=== PATIENT | female | born 1955 | race Native Hawaiian/Other Pacific Islander ===

== ENCOUNTER 2019-05-11 07:03 | Inpatient (IN) ==
--- NOTE | 2019-05-11 07:27 | PROVIDER DOCUMENTATION ---
HPI-General Adult - General Chief Complaint: Post Op Complaint Stated Complaint: POST OP COMPLAINT Time Seen by Provider: 05/11/19 07:23 Source: patient, family, colliery clerk, old records Allergies/Adverse Reactions: Patient Allergies Allergy/AdvReac Type Severity Reaction Status Date / Time No Known Allergies Allergy Verified 05/05/19 10:32 Home Medications: Home Medication List Medication Instructions Recorded Confirmed Last Taken Type Metoprolol [Lopressor] 100 mg PO BID 05/17/15 05/11/19 05/08/19 21:00 History Omeprazole 40 mg PO DAILY 05/17/15 05/11/19 05/08/19 08:00 History Albuterol 0.5% INH Conc [Albuterol 2.5 mg INH Q4H PRN PRN 05/05/19 05/11/19 05/08/19 21:00 History 0.5% INH Conc For Hyperkalemia] Arformoterol Neb [Brovana Neb] 15 microgm INH BID 05/05/19 05/11/19 05/08/19 21:00 History Budesonide/Formoterol Inhaler 2 puff INH BID 05/05/19 05/11/19 05/08/19 21:00 History [Symbicort 160/4.5 Microgm Inhaler] Hydroxyzine [Atarax] 25 mg PO QHS 05/05/19 05/11/19 05/08/19 21:00 History Levothyroxine [Synthroid] 75 microgm PO DAILY 05/05/19 05/11/19 05/08/19 08:00 History Lidocaine 2% Jelly [Xylocaine 2% 0 ml TOP DIRECTED 05/05/19 05/11/19 Unknown History Jelly] Midodrine [Proamatine] 10 mg PO DIRECTED 05/05/19 05/11/19 Unknown History Sevelamer Carbonate 800 mg PO DIRECTED 05/05/19 05/11/19 Unknown History Tramadol [Ultram] 50 mg PO Q8HR PRN 05/05/19 05/11/19 05/08/19 21:00 History - History of Present Illness -Gen Adult Nature of Presenting Problems: pt w/ hx of polycystic CKI now ESRD on dialysis, oliguric, with hx of cystoscopy and bilat retrograde urethrorams ([facility]den: because of persistent or recurrent "bladder pain,") revealing 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 Urologist's op note not yet available for review / unclear whether other interventions performed. Review of Systems - Adult - REVIEW OF SYSTEMS - ADULT Constitutional: reports: no symptoms reported Eyes: reports: no symptoms reported Ears, Nose, Mouth & Throat: reports: no symptoms reported Cardiovascular: reports: no symptoms reported Respiratory: reports: no symptoms reported Gastrointestinal: reports: no symptoms reported Genitourinary: reports: no symptoms reported Musculoskeletal: reports: no symptoms reported Integumentary: reports: no symptoms reported Neurological: reports: no symptoms reported Psychiatric: reports: no symptoms reported Endocrine: reports: no symptoms reported Hematologic/Lymphatic: reports: no symptoms reported Allergic/Immunologic: reports: no symptoms reported All Other Systems: Reviewed and Negative Past History - Adult - PAST MEDICAL HISTORY-ADULT Review of Records: reports: Old Records Reviewed Major Childhood Illnesses: reports: denies history Cardiovascular: reports: HTN Respiratory: reports: denies history Gastrointestinal: reports: denies history Obstetrical/Gynecological: reports: denies history Genitourinary: reports: denies history Musculoskeletal: reports: denies history Neurological: reports: headaches/migraines Endocrine/Immune: reports: denies history Other Conditions: reports: denies history - PRIOR SURGERIES/PROCEDURES Surgical/Procedure History: reports: recent surgery, other (sinus surgery) - IMMUNIZATION STATUS Childhood Immunizations: See Nurse Assessment Flu Vaccine: See Nurse Assessment - FAMILY HISTORY Family History: reviewed, not pertinent Physical Exam-General - PHYSICAL EXAM-ADULT Initial Vital Signs Reviewed: Yes - CONSTITUTIONAL General Appearance: alert, moderate distress - EYES Eyes: PERRL/EOMI, pink conjunctivae - HEAD, EARS, NOSE, MOUTH & THROAT HENMT: normocephalic/atraumatic, moist mucous membranes - NECK Neck: supple - RESPIRATORY Respiratory: lungs clear - CARDIOVASCULAR Cardiovascular: regular rate, rhythm - GASTROINTESTINAL (ABDOMEN) Abdominal Exam: normal bowel sounds, tenderness. 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, grossly normal - PSYCHIATRIC Psych/Mental Status: normal mood/affect, normal thought content Progress - PLAN OF CARE/RESULTS Progress/Plan/Lab Results: Vital Signs - 8 hr 05/11/19 07:07 Temperature 98.3 F Pulse Rate 79 Respiratory Rate 18 Blood Pressure 173/74 O2 Sat by Pulse Oximetry 97 Orders Category Date Time Status CBC WITH DIFF [HEME] Stat Lab 05/11/19 07:26 Uncollected COMPREHENSIVE METABOLIC PANEL [CHEM] Stat Lab 05/11/19 07:26 Uncollected URINALYSIS W/POSS RFLX CULT [URINALYSIS] Stat Lab 05/11/19 07:26 Uncollected Result Diagrams: 05/11/19 07:30 05/11/19 07:30 - REASSESSMENT Reassessment #2 Time Reassessed: 12:05 Status: unchanged (CT confirms bladder in catheter, irrigation ongoing w/ blood- stained crystalloid return, little if any urine detectable. Discussed case w/ Dr. Baez (for [facility]) who rec'd admission w/ ongoing CBI, empiric abx, and he will see in consultation. Dr. Duffy (covering pt' PCP Dr. Castro) paged for admission.) - CONSULTS/PCP/HOSPITALIST Notification #1 *Consult/PCP/Hospitalist*: Clive Departure - Departure Date of Disposition Decision: 05/11/19 Time of Disposition Decision: 13:08 DIAGNOSIS: Gross hematuria, Abdominal pain Disposition: ADMITTED INPATIENT 09 Certified Medical Emergency: Emergent Condition: Stable - Critical Care Note This patient required my direct & personal management of CC.: No Attestation - Physician/ MIRLANDE Attestation The physician spent face to face time with patient:: Yes Advanced Practice Provider documentation review:: Supervising physician onsite and consulted in the evaluation and care of this patient. The physician did have a face to face encounter with the patient.
[2019-05-11] MEDS ORDERED: ZOFRAN IV ONE ×2 (08:08→11:25)
[2019-05-11] MEDS ORDERED: DILAUDID IV ONE ×3 (08:08→13:50)
[2019-05-11 08:09] LABS: BASO# 0.06 X1000 (0.0-0.2); BASO% 0.8 % (0.0-0.8); EOS# 0.83 X1000 (0.0-0.7); EOS% 11.6 % (0.0-10.0); HEMATOCRIT 30.8 % (37.0-47.0); HEMOGLOBIN 9.7 g/dL (12.0-16.0); IMM GRAN# 0.03 X1000 (0.0-0.04); IMM GRAN% 0.4 % (0.0-0.5); LYMPH# 1.33 X1000 (1.2-3.4); LYMPH% 18.7 % (20.5-51.1); MCH 31.2 PG (27-31); MCHC 31.5 g/dL (33-37); MONO% 12.6 % (1.7-9.3); MPV 11.2 FL (7.4-10.4); NEUT# 3.98 X1000 (1.4-6.5); NEUT% 55.9 % (42.2-75.2); PLT 148 X1000 (130-400); RBC 3.11 XMIL (4.2-5.4); RDW 13.9 % (11.5-14.5); WBC 7.13 X1000 (4.8-10.8)
[2019-05-11 08:42] LABS: AGAP 7; ALB/GLOB RATIO 1.1; ALBUMIN 3.6 g/dL (3.5-5.0); ALKALINE PHOSPHATASE 95 U/L (32-104); BUN 13 mg/dL (8-22); CALCIUM 9.1 mg/dL (8.8-10.2); CHLORIDE 95 mmol/L (98-107); COSMO 270; CREATININE 3.5 mg/dL (0.5-0.9); ESTIMATED GFR 13; GLUCOSE 132 mg/dL (70-104); GOT 14 U/L (10-30); GPT < 5 U/L (10-36); POTASSIUM 3.6 mmol/L (3.5-5.1); SODIUM 134 mmol/L (136-145); TCO2 32 mmol/L (25-35); TOTAL BILIRUBIN 0.36 mg/dL (0.20-1.00); TOTAL PROTEIN 6.8 g/dL (6.3-8.3)
--- NOTE | 2019-05-11 11:14 | Diag Imaging Result Doc PS360 ---
CT ABDOMEN/PELVIS W/O CONTRAST - 05/11/2019 INDICATION: hematuria, abd pain s/p RCUG COMPARISON: There is cardiomegaly. The lung bases are clear. There is moderate ascites. There is a small ventral hernia containing some ascites at the anterior pelvic body wall. There is a Vizcarra catheter in good position in the urinary bladder. The urinary bladder does contain some density consistent with previous administered contrast. There is also some urinary bladder wall thickening and mild irregularity, either chronic or related to cystitis. Uterus and rectum are normal. No free air. No bowel obstruction or inflammation. The kidneys are very atrophic. There is moderate to severe bilateral hydroureteronephrosis. There are cholecystectomy clips. The liver and spleen are normal. The pancreas is very atrophic. FINDINGS: 1. Moderate ascites. 2. Moderate to severe bilateral hydroureteronephrosis. Somewhat distended urinary bladder in spite of a Vizcarra catheter. There is urinary bladder wall thickening, nonspecific. 3. Significant cardiomegaly. IMPRESSION: Negative exam. This exam was performed using automated exposure control, adjustment of mA or kV according to patient size, and/or use of iterative reconstruction technique Electronically signed by Ace White 05/11/2019 11:11 AM
[2019-05-11 12:01] LABS: URINE SOURCE CLEAN CATCH
[2019-05-11] MEDS ORDERED: ROCEPHIN 1 GM in NS 50 ML IV ONE (12:09)
[2019-05-11 12:31] LABS: URINE RBC TNTC /HPF (<10)
[2019-05-11 12:32] LABS: COLOR RED; GLUCOSE URINE 100 mg/dL (NEGATIVE); TURBIDITY URINE TURBID (CLEAR)
[2019-05-11 12:33] LABS: BILIRUBIN URINE SMALL (NEGATIVE); BLOOD URINE LARGE (NEGATIVE); KETONE URINE TRACE mg/dL (NEGATIVE); LEUKOCYTES URINE TRACE (NEGATIVE); NITRITE URINE POSITIVE (NEGATIVE); PROTEIN URINE 300 mg/dL (NEGATIVE); SP GRAVITY URINE 1.015; UROBILINOGEN URINE NORMAL (NORMAL)
[2019-05-11] MEDS ORDERED: MORPHINE IV PRN (15:00)
[2019-05-11] MEDS ORDERED: DUONEB (A & A) INH ONE (16:43)
[2019-05-11] MEDS ORDERED: TYLENOL PO PRN (16:53)
[2019-05-11] MEDS ORDERED: ULTRAM PO PRN (16:54)
[2019-05-11] MEDS ORDERED: PROAMATINE PO SCH (17:00)
--- NOTE | 2019-05-11 17:22 | HISTORY AND PHYSICAL ---
CHIEF COMPLAINT: Abdominal pain and hematuria. HISTORY OF PRESENT ILLNESS: The patient is a 63-year-old, female who had gross hematuria and had a cystoscopy 2 days ago apparently as an outpatient or was admitted just overnight. They have kind of cleared the bleeding but has continued to have clots per urethra and abdominal discomfort and came back to the hospital today. She had talked with Dr. Castro or at least her family did earlier today. He called me and thought she needed to be admitted to the hospital and to have Urology take a look at her again. Dr. Baez is covering for Dr. Oden and he will be taking her for another cystoscopy. MEDICATIONS: Lopressor 100 mg p.o. b.i.d., omeprazole 40 mg p.o. b.i.d. Brovana nebulizer 15 mcg inhalations twice daily. Symbicort 160/4.5, 2 puffs b.i.d., but has not had any today. Atarax 25 mg at bedtime. Levothyroxine or Synthroid 75 mcg daily. Xylocaine jelly topically as directed. Midodrine 10 mg p.o. as directed. Sevelamer carbonate 800 mg p.o. as directed and tramadol 50 mg p.o. q.8 hours p.r.n. pain. PAST MEDICAL HISTORY: The patient has history of polycystic kidneys with end-stage renal disease and on dialysis apparently with Dr. Gonsalves. She has had a history of abdominal wall hernia. 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 She has some hydronephrosis. The patient has had hypertension and apparently has had asthma. SOCIAL HISTORY: She does not use alcohol or tobacco. REVIEW OF SYSTEMS: Difficult to obtain, the patient does not speak any Vietnamese. Her was in the room and he speaks a little Vietnamese. Review of systems though through the emergency room physician and what I could get from .Neurological: Denies headaches, seizures, visual problems, hearing problems. Pulmonary: She has had some wheezing and takes medication for that. Cardiovascular: Denies chest pain, heart palpitations, PND, orthopnea. Gastrointestinal: Denies hematochezia, hematemesis, melena, constipation. Does have ascites supposedly from nephrotic syndrome. Endocrine: Denies diabetes or pituitary problems. But does have hypothyroidism and takes thyroid replacement hormone. PAST SURGICAL HISTORY: The patient has had a history of sinus surgery. PHYSICAL EXAMINATION: VITAL SIGNS: Blood pressure is 156/54, respirations 19, pulse 62 and regular, temperature is 98.4 degrees Fahrenheit. Oxygen saturation on 2 L is 100%. HEENT: She is normocephalic. EOMS intact. PERRLA. Throat clear. NECK: Supple without thyromegaly, lymphadenopathy, carotid bruits. LUNGS: Have some scattered wheezing. HEART: Regular rate and rhythm without murmurs, gallops, friction rubs. ABDOMEN: Soft. Active bowel sounds. Mild tenderness in the lower quadrants. She does have some ascites and a hernia. PELVIC, RECTAL AND BREAST: Examinations are deferred. INTEGUMENT: Shows no lesions consistent with melanoma or other skin cancers. LYMPHATIC: Lymph nodes are nonpalpable in the cervical and supraclavicular areas. NEUROLOGICAL: Cranial nerves 2-12 intact. Sensory and motor intact. LABORATORY: Shows white count 7130. Hemoglobin 9.7, probably from chronic renal disease. Hematocrit 30.8. Potassium is 3.6, sodium 134, creatinine is 3.5, BUN 13. Urinalysis shows too numerous to count red blood cells. ASSESSMENT: 1. Hematuria. 2. End-stage renal disease. 3. Polycystic kidneys. 4. Asthma. 5. Hypertension. PLAN: We will admit. I have consulted Urology who is going to take her for cystoscopy. We will treat her bronchospasm. cc: Mauro Duffy Jr, MD
--- NOTE | 2019-05-11 17:27 | CONSULTATION ---
DATE OF CONSULTATION: 05/11/2019 CHIEF COMPLAINT: Hematuria with clots. HISTORY OF PRESENT ILLNESS: Mrs. Glass is a 63-year-old with end-stage renal disease, hypertension, and hypothyroidism who was seen by Dr. Oden regarding hematuria and bladder pain. The patient was taken to the operating room on Thursday for cystoscopy and bilateral retrograde pyelograms. The patient had a normal cystoscopy with no masses seen. Retrograde pyelogram showed a small amount of retained contrast bilaterally with distended collecting systems. The patient did well and then was discharged home; however she has had persistent hematuria since undergoing dialysis yesterday. The patient was brought to the [facility] Emergency Room today for further evaluation. She is complaining of bladder pain and pressure. The patient had a catheter inserted in the ED and subsequently started on bladder irrigation. The irrigation was drained well while in the emergency room; however, on the floor, her catheter was unable to drain, and it seems like there is a large amount of clot within her bladder. She has been complained of pain, and her abdomen is distended per her 's report. No palpable masses were seen previously, per the . He states that she had to have a paracentesis in the past for ascites. He also describes having a "bladder repair" by Dr. Alexandre several years ago. The patient is uncomfortable in the room and her husbands states this is how she felt prior to that surgery. . PAST MEDICAL HISTORY: 1. End-stage renal disease. 2. Hypertension. 3. Hypothyroidism. 4. Gastroesophageal reflux disease. PAST SURGICAL HISTORY: 1. Bladder repair by Dr. Alexandre. 2. Sinus surgery. 3. Cystoscopy and bilateral retrograde pyelograms by Dr. Alexandre. 4. Left AV fistula ALLERGIES: No known drug allergies. HOME MEDICATIONS: 1. Metoprolol 100 mg b.i.d. 2. Omeprazole 40 mg daily. 3. Albuterol 2.5 mg every 4 hours as needed. 4. Brovana nebulizer. 5. Symbicort 160/4.5. 6. Hydroxyzine 25 mg p.o. 7. Synthroid 75 mcg p.o. daily. 8. Midrin 10 mg p.o. 9. Sevelamer 800 mg p.o. 10. Tramadol 50 mg p.o. every 8 hours as needed for pain. FAMILY HISTORY: Denies family history of malignancies. REVIEW OF SYSTEMS: A 12-point review of systems was performed, with all pertinent positives negative unless noted in the HPI. PHYSICAL EXAMINATION: Vital signs: Temperature 98.4, heart rate 62, blood pressure 156/54, oxygenation 100% on nasal cannula. General: Mild distress, complaining of abdominal pain in [place]. Respiratory: Good respiratory effort without audible wheezing or rales. HEENT: Normocephalic, atraumatic. Pupils equal, round, and reactive to light. Neck: Trachea midline with no palpable masses. Cardiovascular: Regular rate and rhythm. Abdomen: Abdominal distention with palpable firm suprapubic area and what appears to be an infraumbilical abdominal hernia. Slight tenderness to palpation of the suprapubic area. : Urethral catheter in place, not draining any irrigant. CBI is off. No CVA tenderness. Musculoskeletal: Moving all extremities. Left AVF fistula in place. Skin: No skin lesions or rashes. LABS: White blood cell count 7.1, hemoglobin 9.7, hematocrit 30.8, platelets 148. Sodium 134, potassium 3.6, chloride 95, bicarb 32, BUN 13, creatinine 3.5, glucose 132, AST and ALT 14 and less than 5. Urine shows 300 protein, 100 glucose, large amount of blood, nitrite positive, trace leukocytes, negative bacteria and epithelial cells. IMAGING STUDIES: CT images reviewed, which showed a slightly distended bladder with a homogeneous appearance with no obvious clots and likely contrast in the bladder itself with spherical shape. The collecting systems are slightly distended. The catheter is in place. A large amount of ascites is present with what appears to be a infraumbilical hernia that is fluid collecting. ASSESSMENT AND PLAN: Mrs. Glass is a 63-year-old with hypertension, end-stage renal disease on dialysis, gastroesophageal reflux disease, and hypothyroidism, who presents in consultation regarding gross hematuria with clot passage. The patient had undergone surgery by Dr. Oden on Thursday for hematuria and was discharged home. The patient had dialysis yesterday and developed significant hematuria. Her states that she did not get any heparin for the past 2 dialysis sessions related to potential risk of hematuria following her dialysis. The patient is having some suprapubic pain and distention. The patient was evaluated, and her abdomen was quite swollen. I tried to irrigate her catheter, which did not irrigate effectively. The decision was made to remove the 22- [place] [address] catheter latex and exchange it for a 24 three-way catheter silicone. I was able to irrigate a large amount of clots from the bladder, which significantly improved her abdominal exam. The patient had no significant distention or tenderness to palpation at the end of the procedure; however, her urine continues to be quite bloody while on continuous irrigation. Irrigation does drained effectively, and I cannot get anymore clots out. I am highly concerned with her history of prior bladder repair by Dr. Alexandre that she may have aggravated this again with her distended bladder and persistent hematuria. I talked with the family. I recommended cystoscopy with clot evacuation and fulguration of bleeding, to ensure she does not have an intraperitoneal bladder rupture. The patient had a CT scan today which showed a small amount of hyperdense material in the bladder itself, likely contrast from her procedure versus clots. I did remove a large amount of clot from her bladder today with hand irrigation, and she seems to be much more comfortable. I still remain concerned regarding her history of bladder injury and that she may have a subacute bladder injury. I recommended cystoscopy and clot evacuation under anesthesia. If there is a hole, I told the family that I would try to repair that at that time. The patient and her are in agreement. Also discussed with her son, who agrees with the plan of care. We will plan to take her to the operating room later tonight for the procedure. Can restart diet after her procedure. cc: MD Mauro Claudio Jr, MD MTDD
[2019-05-11] MEDS: ZOFRAN IV PRN (17:28)
[2019-05-11] MEDS: DILAUDID IV PRN (17:28)
[2019-05-11] MEDS ORDERED: DIPRIVAN 1% ONE (18:16)
[2019-05-11] MEDS ORDERED: ZEMURON ONE (18:18)
[2019-05-11] MEDS ORDERED: QUELICIN (DOSE) ONE ×2 (18:18→18:20)
[2019-05-11] MEDS ORDERED: ZOFRAN ONE (18:20)
[2019-05-11] MEDS ORDERED: DECADRON ONE (18:20)
[2019-05-11] MEDS ORDERED: FENTANYL ONE (18:21)
[2019-05-11] MEDS: SYMBICORT 160/4.5 MICROGM INHALER INH SCH (19:34)
[2019-05-11] MEDS ORDERED: MORPHINE ONE (20:34)
[2019-05-11 20:51] LABS: HEMATOCRIT 32.6 % (37.0-47.0); HEMOGLOBIN 10.2 g/dL (12.0-16.0); MCH 31.2 PG (27-31); MCHC 31.3 g/dL (33-37); MCV 99.7 FL (81-99); MPV 10.9 FL (7.4-10.4); RBC 3.27 XMIL (4.2-5.4); WBC 13.28 X1000 (4.8-10.8)
--- NOTE | 2019-05-11 21:43 | Diag Imaging Result Doc PS360 ---
CYSTOGRAM 123 FILMS W S/I - 05/11/2019 INDICATION: GROSS HEMATURIA,POST BLADDER SURGERY TECHNIQUE: The exam was performed by the patient's urologist. Three images were obtained. COMPARISON: CT from earlier today FINDINGS: The urinary bladder was scoped and filled with contrast. The exam appears grossly normal. IMPRESSION: No acute disease. Electronically signed by Ace White 05/11/2019 9:40 PM
[2019-05-12] MEDS: PRILOSEC PO SCH ×2 (05:44→06:28)
[2019-05-12] MEDS: SYNTHROID PO SCH ×2 (05:45→06:28)
[2019-05-12 07:01] LABS: BASO# 0.04 X1000 (0.0-0.2); BASO% 0.4 % (0.0-0.8); EOS# 0.72 X1000 (0.0-0.7); EOS% 7.8 % (0.0-10.0); HEMATOCRIT 26.6 % (37.0-47.0); HEMOGLOBIN 8.1 g/dL (12.0-16.0); IMM GRAN# 0.03 X1000 (0.0-0.04); IMM GRAN% 0.3 % (0.0-0.5); LYMPH% 14.1 % (20.5-51.1); MCH 30.7 PG (27-31); MCHC 30.5 g/dL (33-37); MCV 100.8 FL (81-99); MONO# 1.31 X1000 (0.11-0.59); MONO% 14.2 % (1.7-9.3); MPV 10.9 FL (7.4-10.4); NEUT# 5.81 X1000 (1.4-6.5); NEUT% 63.2 % (42.2-75.2); PLT 148 X1000 (130-400); RBC 2.64 XMIL (4.2-5.4); RDW 14.1 % (11.5-14.5); WBC 9.21 X1000 (4.8-10.8)
[2019-05-12 07:15] LABS: CALCIUM 8.1 mg/dL (8.8-10.2); CREATININE 4.6 mg/dL (0.5-0.9); POTASSIUM 4.1 mmol/L (3.5-5.1)
--- NOTE | 2019-05-12 07:27 | OPERATIVE NOTE ---
PROCEDURE DATE: 05/11/2019 PREOPERATIVE DIAGNOSIS: Hematuria. POSTOPERATIVE DIAGNOSIS: Hematuria. PROCEDURE PERFORMED: 1. Cystoscopy with clot evacuation and fulguration of bleeding. 2. Cystogram SURGEON: Antonio Baez MD. HUMAN RESOURCES CLERK: None. COMPLICATIONS: None. ESTIMATED BLOOD LOSS: 30 mL. SPECIMEN REMOVED: Clots. ANESTHESIA: Endotracheal intubation. INDICATIONS FOR PROCEDURE: Mrs. Glass is a 63-year-old with end-stage renal disease, who has been having intermittent hematuria. The patient was seen by Dr. Oden and underwent cystoscopy with bilateral retrograde pyelograms on Thursday. The patient developed hematuria after having dialysis on Thursday, and presented to the emergency room Thursday afternoon with hematuria. The patient was evaluated and admitted to the hospitalist, who was consulted due to not draining from her catheter. She was evaluated and found to have a large clot burden within her bladder. I was able to evacuate some clots through the catheter, however patient continued to have discomfort and hematuria. The patient has a history of prior bladder perforation, which was repaired by Dr. Alexandre several years ago. Due to these findings, I recommended cystoscopy, clot evacuation, cystogram and evaluation for bladder perforation. Risks, benefits, alternatives to procedure were discussed the patient and her , who elected to proceed. DESCRIPTION OF PROCEDURE: After informed consent was obtained, the patient brought to the operating room, placed on the operating table in supine position. The patient received preoperative antibiotics and underwent endotracheal intubation. She was positioned in a dorsal lithotomy position, was prepped and draped in usual fashion. A preoperative time-out was performed with all parties in agreement, including anesthesia, surgical, nursing staff. At which point I inserted a 21-[place] cystourethroscope into the bladder. Once in the bladder, a large amount of clot was seen. I tried to evacuate the clot through our cystoscope, but had significant difficulty due to the patient having a very small bladder, which did not allow for adequate distention. Ultimately obtained a resectoscope 25-[place] and advanced to the bladder, and then tried to use an Ellik, as well as a Vinay syringe, which did not allow for adequate removal of clot. The decision was made to use a loop and extract clot. I was able to extract a large amount of clot this way. Ultimately, after approximately half the clot was removed, I shot a cystogram after reinserting the cystoscope, which outlined a normal bladder with some filling defects from the clots, but no obvious extravasation in the bladder itself, at which point I continued to remove clots and spent approximately an hour removing clots in total. Once all this was removed, I shot another cystogram which outlined a normal bladder with no evidence of any extraperitoneal or intraperitoneal drainage, and the bladder drained efficiently on postdrainage film. The patient's bladder was quite small, likely from her end-stage renal disease. Ultimately I saw several small petechial areas that were bleeding and these were cauterized, and the patient's bladder was cycled multiple times with no active bleeding seen. Once this was completed, the patient's bladder was left full, and a 22-[place] 3-way catheter was inserted and inflated with 20 mL of sterile water, placed to gravity drainage and continued. His bladder irrigation was initiated. The patient was transferred back to the floor. We will obtain a CBC in PACU and evaluate overnight on continuous irrigation. We will wean this as tolerates. cc: MD Mauro Claudio Jr, MD MTDD
[2019-05-12] MEDS: SYMBICORT 160/4.5 MICROGM INHALER INH SCH ×2 (07:35→19:23)
[2019-05-12] MEDS: DUONEB (A & A) INH PRN ×2 (07:36→15:42)
[2019-05-12] MEDS ORDERED: LOPRESSOR PO SCH ×2 (09:00→21:00)
[2019-05-12] MEDS: ZOFRAN IV PRN ×3 (09:02→19:48)
[2019-05-12] MEDS ORDERED: NS 500 ML IV ONE (09:52)
--- NOTE | 2019-05-12 10:39 | PROGRESS NOTE ---
DATE: 05/12/2019 SUBJECTIVE: Ms. Glass is still having some abdominal pain. She is getting bladder irrigation and returning fluid is still blood stain tinge; however, it is much better. She had a cystoscopy done last night. OBJECTIVE: Her vital signs are stable. Hemoglobin has dropped from 10.2 to 8.1 on account of persistent hematuria. Her electrolytes status is normal. ASSESSMENT AND PLAN: She has renal failure. She has her dialysis in [place]. However, she is due for tomorrow. I am going to ask for Dr. Conde's consult for possible dialysis tomorrow. She also has significant ascites, and we will try to find out if we can get consultation for abdominal paracentesis. We will transfuse 1 unit of packed red blood cells today. cc: MD Mauro Oliva Jr, MD
--- NOTE | 2019-05-12 11:24 | PROGRESS NOTE ---
DATE: 05/12/2019 SUBJECTIVE: The patient did well overnight. Patient went to the operating room yesterday for cystoscopy, clot evacuation, fulguration of bleeding. The patient's catheter has been draining well with a slow drip of continuous bladder irrigation. There was a light pink color to it today with no obvious clots seen within the catheter or the catheter bag. The patient's vital signs have been stable. She denies significant pain this morning. She remains afebrile. OBJECTIVE: Vital Signs: Temperature 98.4 degrees, heart rate 76, blood pressure 123/48, oxygen saturation 91% on room air. General: No acute distress. Resting comfortably in bed. Respiratory: Good respiratory effort without audible wheezing or rales. Abdomen: Soft, nontender, nondistended. Genitourinary: No suprapubic tenderness. No CVA tenderness. Urethral catheter in place with continuous bladder irrigation and a slow drip with no significant clots. Irrigation is light pink on a very slow drip. LABS: White blood cell count 9.2, hemoglobin 8.1, hematocrit 26.6, platelets 148,000. Sodium 134, potassium 4.1, chloride 96, bicarbonate 27, BUN 20, creatinine 4.6, glucose 105, calcium 8.1. ASSESSMENT AND PLAN: Mrs. Glass is a 63-year-old with end-stage renal disease with a history of hematuria who underwent cystoscopy, bilateral retrograde pyelograms on 05/09/[address] Oden. The patient developed postoperative bleeding and went to the operating room yesterday for cystoscopy and clot evacuation. The patient was kept on continuous irrigation, and her drainage is slow with a very light pink color. I would likely plan to wean the irrigation off later today, and if urine remains clear I would plan to remove the catheter in the morning for a voiding trial. No obvious etiology for hematuria was seen yesterday. I think she may have some hematuria from kidneys leading to her hematuria. If this persists, may have to evaluate for management of upper tract bleeding. The patient will follow up with Dr. Oden after discharge. cc: MD Mauro Claudio Jr, MD MTDD
[2019-05-12] MEDS: DILAUDID IV PRN (12:08)
[2019-05-12] MEDS: RENAGEL PO SCH (12:15)
--- NOTE | 2019-05-12 14:03 | NEPHROLOGY CONSULTATION ---
DATE: 05/12/2019 REASON FOR CONSULTATION: Renal failure. Patient needs hemodialysis in a.m. HISTORY OF PRESENT ILLNESS: Ms. Glass is a 63-year-old chronic dialysis patient who had a procedure done by Dr. Oden. He subsequently developed hematuria and abdominal pain. Ultimately, she was admitted and taken to the operating room for evacuation of clot and fulguration of bleeding sites. She currently is without pain and has a Mcguire drip for bladder irrigation. Lying flat. No shortness of breath. No nausea, vomiting, etc. PHYSICAL EXAMINATION: Vital Signs: Blood pressure 131/46, heart rate 67, respirations 16, afebrile. General: No acute distress. Skin: Warm and dry. Conjunctivae are pink. Neck: Neck veins are not appreciated. Heart: Regular. No rubs. Lungs: Equal. No crackles or wheezes. Abdomen: Soft, distended, mildly tender. Bowel sounds are present. Extremities: No edema, clubbing or cyanosis. Left upper arm AV fistula. IMPRESSION: Chronic kidney disease 5D. She will have her routine hemodialysis treatment tomorrow. Volume status, electrolytes, acid-base are all in target. Hemoglobin is 8.1. She is receiving a unit of packed red blood cells. cc: MD Mauro Seals Jr, MD
--- NOTE | 2019-05-12 15:13 | GASTROENTEROLOGY CONSULTATION ---
DATE: 05/12/2019 PRIMARY CARE PHYSICIAN: Dr. Castro REASON FOR CONSULTATION: Ascites. HISTORY OF PRESENT ILLNESS: Ms. Glass is a 63 female who was admitted on 05/11/2019 for abdominal pain and hematuria. She has been seen by Dr. Baez and had cystoscopy with clot evacuation and fulguration of bleeding. The patient has history of end-stage renal disease, on hemodialysis Thursday, Thursday, Thursday for the last 5 years. She has been noticing increasing ascites over the last a few months. She has had ascites drained a couple of times, the last one was 3 months ago at [facility]. During this admission she was noted to have abdominal distention and imaging showed evidence off of a moderate amount of ascites. There is no history of any liver disease. The patient denies history of alcohol. She denies any history of heart disease. The pathology and etiology of ascites is unclear, could be related to renal failure. Gastroenterology consulted for paracentesis. PAST MEDICAL HISTORY: 1. End-stage renal disease secondary to polycystic kidneys. 2. End-stage renal disease on hemodialysis Thursday, Thursday, Thursday. 3. Abdominal wall hernia. 4. Ascites. 5. Hydronephrosis. 6. Hypertension. 7. Asthma. 8. Reflux disease. 9. Hypothyroidism. SOCIAL HISTORY: No history of alcohol, tobacco, illicit drugs. She is . Her is very supportive, present at the bedside. PAST SURGICAL HISTORY: Sinus surgery, and paracentesis. Cystoscopy which was done during this admission. ALLERGIES: No known drug allergies. MEDICATIONS IN HOSPITAL: Include Dilaudid 0.5 mg IV every 3 hours as needed. Tylenol, albuterol/ipratropium, budesonide/formoterol, Synthroid, metoprolol, midodrine, omeprazole, Zofran, Renagel, tramadol. She is currently on NPO and Nepro shakes. REVIEW OF SYSTEMS: Denies any fevers, rigors, chills and chest pain, shortness of breath, dyspnea. Denies any vomiting blood. She did have nausea and decreased p.o. intake and she has not moved her bowels since admission. She denies any major arthritis denies any neurologic complaints. She has renal failure secondary to polycystic kidney disease on hemodialysis Thursday, Thursday, Steve. Next dialysis tomorrow. PHYSICAL EXAMINATION: Vital signs: Temperature 98 degrees, pulse rate 67, respiratory 16, blood pressure 130/46 saturating 91% on room air. Body weight of 92 pounds. BMI 18.6 kg. General: Thinly built, lying in bed, in no acute distress.HEENT: Positive pallor. No icterus. Pupils equal, reactive to light. Nasal cannula in place. Neck: Supple. Neck is supple. Abdomen: Abdomen is distended. Ascites positive. Discomfort in the pelvic region. No rebound. No guarding. Extremities: No cyanosis clubbing. Neuro: She is alert, awake, oriented x3. LABS: Hemoglobin and hematocrit is 8.9 and 26.6, white count 9.1, platelet count of 148,000. Sodium 130 potassium 4.1, chloride 96, bicarb 27, anion gap 11, BUN of 20, creatinine 4.6, glucose of 105, calcium is 8.1. AST 14, ALT less than 5, alkaline phosphatase 94, total protein 6.2, albumin of 3.6, total bilirubin is 0.36. Urinalysis showing positive protein, positive glucose, trace ketones, large amount of blood, positive nitrites. Small bilirubin, trace leukocytes in too many red cells and urine culture was not done. IMAGING: CT of the abdomen and pelvis was done on admission showed: 1. Cardiomegaly. 2. Moderate ascites. 3. Small ventral hernia containing some ascites. 4. Vizcarra catheter in good position. 5. No bowel obstruction. 6. Moderate to severe bilateral hydroureteronephrosis. 7. Cholecystectomy clips. 8. Pancreas is atrophic. 9. Significant cardiomegaly. IMPRESSION AND PLAN: 1. Ascites of unclear etiology. 2. Cardiomegaly significant on imaging, suggesting a possibility off of congestive heart failure. May be contributing to ascites. 3. End-stage renal disease, on hemodialysis secondary to polycystic kidney disease. 4. Hematuria. 5. Bilateral hydroureteronephrosis being followed by Urology. 6. Anemia. 7. Asthma. 8. Hypertension. RECOMMENDATIONS: 1. We will schedule for paracentesis under ultrasound guidance per the radiologist. We will check the fluid studies to evaluate for any kind of peritonitis or calculate the SAAG ratio. It is likely that she has significant congestive heart failure which could be contributing to ascites. It could be part of the renal disease as well. The patient has no known history of liver disease in the past. Follow up on the fluid studies. 2. The patient will be n.p.o. for now for paracentesis today. 3. Patient is anemic she is getting 1 unit of blood transfusion. 4. The patient will continue on Synthroid per the primary team for hypothyroidism. 5. She is on antihypertensives per the primary team. 6. She will continue IV Zofran as needed for nausea. 7. She has decreased p.o. intake which could be attributed to ascites hopefully with therapeutic thoracentesis her appetite should improve. 8. Gastrointestinal prophylaxis with Prilosec and the patient has known history of reflux disease. She will continue proton pump inhibitor for now. 9. The patient will continue on albuterol and ipratropium inhaler every 4 6 hours for asthma. 10. She is on pain control with Dilaudid. 11. We will start her on bowel regimen with Steph-Colace. She has not moved her bowels the last 2 days. 12. She may need a cardiac workup in the form of echocardiogram to evaluate for right-sided heart failure or any kind of pathology related to heart explaining her onset of ascites. The above plan the patient and family and all questions were answered. cc: MD Mauro Guerra Jr, MD Amit V. Vora, MD Reginald D. Gladish, MD Patrick Guthrie, MD
[2019-05-12] MEDS: NS 500 ML IV SCH ×2 (17:55→22:30)
[2019-05-12] MEDS ORDERED: PHENERGAN IV PRN (20:42)
[2019-05-12] MEDS ORDERED: SODIUM CHLORIDE 0.9% INJ PRN (20:42)
[2019-05-12] MEDS: PERICOLACE PO SCH (21:43)
[2019-05-13] MEDS: NS 500 ML IV SCH ×2 (05:46→10:08)
[2019-05-13] MEDS: SYNTHROID PO SCH (06:11)
[2019-05-13] MEDS: PRILOSEC PO SCH (06:11)
[2019-05-13 06:38] LABS: INR 1.13; PROTIME 14.7 Seconds (11.0-16.0)
[2019-05-13 07:06] LABS: CALCIUM 8.4 mg/dL (8.8-10.2); POTASSIUM 4.7 mmol/L (3.5-5.1)
[2019-05-13 07:21] LABS: CREATININE 5.8 mg/dL (0.5-0.9)
--- NOTE | 2019-05-13 07:25 | EKG Report ---
Test Performed on : 05/13/2019 07:19:35 AM Test Reason : CP Blood Pressure : / mmHG Vent. Rate : 066 BPM Atrial Rate : 066 BPM P-R Int : 204 ms QRS Dur : 100 ms QT Int : 436 ms P-R-T Axes : 062 068 -22 degrees QTc Int : 457 ms Normal sinus rhythm. Anterior infarct , age undetermined T wave abnormality, consider lateral ischemia Abnormal ECG When compared with ECG of 05-MAY-2019 10:50, Inverted T waves have replaced nonspecific T wave abnormality in Inferior leads T wave inversion more evident in Anterolateral leads Confirmed by Matthew ZAZUETA, Adi ([id number]) on 05/13/2019 11:26:06 AM
[2019-05-13 07:37] LABS: BASO# 0.05 X1000 (0.0-0.2); BASO% 0.6 % (0.0-0.8); HEMATOCRIT 36.1 % (37.0-47.0); HEMOGLOBIN 11.6 g/dL (12.0-16.0); LYMPH# 1.32 X1000 (1.2-3.4); LYMPH% 15.1 % (20.5-51.1); MCH 30.4 PG (27-31); MCHC 32.1 g/dL (33-37); MCV 94.5 FL (81-99); MONO# 1.03 X1000 (0.11-0.59); MONO% 11.8 % (1.7-9.3); MPV 11.4 FL (7.4-10.4); NEUT# 4.93 X1000 (1.4-6.5); NEUT% 56.5 % (42.2-75.2); PLT 159 X1000 (130-400); RBC 3.82 XMIL (4.2-5.4); RDW 16.2 % (11.5-14.5); WBC 8.73 X1000 (4.8-10.8)
[2019-05-13] MEDS: SYMBICORT 160/4.5 MICROGM INHALER INH SCH (08:13)
--- NOTE | 2019-05-13 08:40 | PROGRESS NOTE ---
DATE: 05/13/2019 SUBJECTIVE: No acute events overnight. The patient's CBI was weaned low yesterday and ultimately off. The patient had a clot that was removed from the bladder yesterday by nursing afterwards and then CBI was restarted. CBI was running slowly overnight with clear to light pink urine. No clots returned. No evidence of significant hematuria. The patient denies any bladder pain or pressure. She overall feels well. She has been slightly nauseated yesterday and was seen by Gastroenterology Medicine for possible paracentesis. Ultimately, patient was going to proceed with this, but decided not to. OBJECTIVE: Vital Signs: Temperature 98.8 degrees, heart rate 65, blood pressure 143/57, oxygen 95% on room air. General: No acute distress. Resting comfortably in bed. Alert and oriented x3. Respiratory: Good respiratory effort without audible wheezing or rales. Abdomen: Soft, nontender, nondistended. No palpable masses. A small ventral hernia with fluid palpated. No palpable suprapubic tenderness. No CVA tenderness. Genitourinary: Urethral catheter in place draining light clear to pink irrigant. No bladder distention. LABS: White blood cell count 8.7, hemoglobin 11.6, hematocrit 36.1, and platelets 159,000. Sodium 136, potassium 4.7, chloride 100, bicarb 26, BUN 26, creatinine 5.8, glucose 108. PT was 14.7, INR 1.13. ASSESSMENT AND PLAN: Mrs. Glass is a 63-year-old with history of end-stage renal disease, hypertension, and recurrent hematuria. The patient was taken the operating room on 05/11/2019 for cystoscopy and clot evacuation. She had a large amount of clots in her bladder at that time. The patient had undergone workup on Thursday with cystoscopy and bilateral retrograde pyelograms by Dr. Oden for history of recurrent hematuria. The patient has had persistent hematuria since then. The patient had a catheter inserted and was on CBI postoperatively from clot evacuation. Her urine is light pink this morning and I did hand irrigated her but she had some discomfort. I think that her bladder was so small that she was having spasms versus clots in her bladder. I told her that she could have clots inside her bladder. In talking with the patient and her I offered them the opportunity to remove the catheter versus discussion of repeat clot evacuation. I do think she does have some clots in her bladder. They are not draining well through the catheter. I think her likely source of bleeding is from her upper tracts. I told her and her that it is difficult to stop bleeding from kidneys other than embolization of the kidneys or consideration for nephrectomy. The patient's hemoglobulin and hematocrit improved after blood transfusion yesterday. Her Hct went from 26 to 36 after 2 units of blood. The patient's vital signs have all been stable and she denies significant pain. I talked with her and gave her the options to proceed with cystoscopy, clot evacuation versus removal of her catheter to see if she voids spontaneously. Her bladder is quite small, probably holding on 120 mL at the most. I think that the patient would void often and potentially could try to break up the clots herself. The patient does not make a large amount of urine at home. She denies any significant pain today. After a thorough discussion the patient has elected to remove the catheter and see if this would help with any pelvic pain and discomfort she has had. Initially was scheduled to have paracentesis done by GI Medicine, but has elected not to proceed and is scheduled to maybe go to [place] to have this done next week. She has had several paracenteses in the past due to fluid buildup. I am not sure if that is leading to some of her symptoms. She states that when her fluid around her abdomen decreases she feels like she urinates better and there may be some truth to that. I talked with her. We will plan to remove the catheter this morning and try to let her start trying to void. She is scheduled to have dialysis later today. We will continue to monitor. Please call with questions or concerns. cc: MD Mauro Claudio Jr, MD MTDD
[2019-05-13] MEDS: PERICOLACE PO SCH (10:06)
[2019-05-13] MEDS ORDERED: NS 2,000 ML MISC PRN (10:57)
[2019-05-13] MEDS ORDERED: HEPARIN IV PRN (10:57)
--- NOTE | 2019-05-13 11:40 | PROGRESS NOTE ---
DATE: 05/13/2019 Her vital signs are stable at the present time. She is getting hemodialysis and feeling better. Her lab data reveals hemoglobin is 11.6 now after 2 units of packed RBC transfusion. White count is normal. Her blood indices are normal. Her INR was 1.13. Electrolytes are normal and urinalysis showed positive nitrite, however, there was lot of blood at that time. I am going to prescribe her amoxicillin her antibiotic of choice. Discussed with her . She is supposed to continue with the current management and we will discharge her today, as per her request. cc: MD Mauro Oliva Jr, MD
--- NOTE | 2019-05-13 14:03 | NEPHROLOGY PROGRESS NOTE ---
DATE: 05/13/2019 SUBJECTIVE: The Vizcarra catheter is out and she has no particular pain. Resting, on dialysis. OBJECTIVE: Vital Signs: Blood pressure 143/57, heart rate 65, respirations 16, afebrile. General: No acute distress. Frail, thin. Neck: Neck veins are not distended. Heart: Regular. Lungs: Equal. Abdomen: Soft. Distended. Bowel sounds present. Extremities: No edema. IMPRESSION: Chronic kidney disease, 5d. 1.5 to 2 L ultrafiltration on dialysis today. 2K bath. Okay for discharge from my perspective. cc: MD Mauro Seals Jr, MD
[2019-05-13] MEDS: RENAGEL PO SCH (14:39)
[2019-05-13 15:16] VITALS: BP 144/55
--- NOTE | 2019-05-13 15:17 | PROVIDER PROGRESS NOTE ---
Progress Note S: Patient refused diagnostic paracentesis. No acute overnight events. Afebrile. She denies abdominal, N/V, or rectal bleeding. Undergoing HD currently O: Last Vital Signs Temp 98.8 F 05/13/19 07:32 Pulse 65 05/13/19 07:32 Resp 16 05/13/19 07:32 BP 143/57 05/13/19 07:32 Pulse Ox 95 05/13/19 08:14 Height 4 ft 11 in Weight 92 lb GEN: awake, alert, NAD HEENT: anicteric, MMM NECK: supple, no LAD CV: RRR, no murmurs PULM: normal WOB, CTAB ABD: soft NT, BS present EXT: no cce NEURO: nonfocal LABS: 05/13/19 05/13/19 05:59 05:59 WBC 8.73 Hgb 11.6 L D Plt Count 159 Sodium 136 Potassium 4.7 Chloride 100 BUN 26 H Creatinine 5.8 H Glucose 108 H A/P: Ms. Danielle Glass is a 63 year old woman with HTN, chronic anemia, ESRD on HD, asthma who presents to the GI service for evaluation and treatment of ascites. It is likely her ascites is cardiac in etiology; however, we do not have ascites fluid studies to assess. These can be obtained from [facility] as she has had diagnostic/therapeutic paracentesis done there. No history of liver disease and US here is unrevealing for etiology of ascites. She has anemic with macrocytic anemia. She has history of folate deficiency in the past. No recent iron studies, folate, or b12 in the system. She is s/p tranfusion. She is being discharge from primary team. Recommend follow-up with Dr. Reyes upon discharge. # Ascites: suspect cardiac related; tx with HD per renal; recommend obtaining records from [facility] # Macrocytic anemia: stable; no overt bleeding # ESRD on HD per renal # Cardiomegaly: defer evaluation to primary Please call with questions
--- NOTE | 2019-05-17 17:50 | DISCHARGE SUMMARY ---
ADMISSION DATE: 05/11/2019 DISCHARGE DATE: 05/13/2019 DIAGNOSIS OF ADMISSION: Ms. Glass with case of chronic renal failure was admitted with severe abdominal pain, anemia, and ascites. DIAGNOSTIC DATA: In the hospital, cystogram revealed no acute disease. Abdomen and pelvic CT revealed moderate ascites, moderate to severe bilateral hydronephrosis. Urinary bladder was somewhat distended in spite of the Vizcarra catheter. There was some bladder wall thickening, which was nonspecific. Significant cardiomegaly was noted. Moderate ascites was noted. EKG had revealed normal sinus rhythm, anterior infarct, age undetermined and T-wave changes suggestive of lateral wall ischemia point. COURSE IN THE HOSPITAL: She had dialysis at least once. On , before she came in she had dialysis in [place]. Urology consult was made and Dr. Baez did cystoscopy and bladder irrigation was done. Thereafter, no other procedure was performed. She had a Nephrology consult and dialysis was done. She had a consult with Radiology and GI to do the ascites taping, however, and she did not want to wait for taping any longer and was discharged. She was given 2 units of packed RBC transfusion on account of increasing anemia. Hemoglobin had dropped from 10.2 to 8.1, and final hemoglobin was 11.6 and 36.1. She was not bleeding at the time of discharge. BUN was 26, creatinine 5.8. cc: MD Mauro Oliva Jr, MD
--- NOTE | 2019-05-17 17:57 | DISCHARGE SUMMARY ---
ADMISSION DATE: 05/11/2019 DISCHARGE DATE: 05/13/2019 ADDENDUM: Significant hematuria, renal failure, anemia status post transfusion of 2 units, and status post hemodialysis. She will be followed in the dialysis clinic in [place] and she will be followed by Dr. Oden, the urologist. cc: MD Mauro Oliva Jr, MD
== END 2019-05-13 15:41 | disposition home or self-care (01) | DRG 663 ==
LOC: ED 07:03 → 4N 14:06
PROVIDERS: ADMIT Emergency Medicine; ATTEND Internal Medicine